=== PATIENT | male | born 1970 | race Caucasian/White ===

== ENCOUNTER 2016-07-31 15:17 | Emergency (ER) | payer SELFPAY ==
[~2016-07-31] VITALS: Ht 180.3 cm; Wt 95.3 kg
[~2016-07-31 15:17] MED LIST: ACET-789 PO; ASPI-808 PO; ASPI-983 PO; DAPA10TA PO; DAPA1TAB5 PO; DICL100G18 TOP; ENOX40DI8 SC; FLUO20CA25 PO; FLUO40CA12 PO; HYDR1CAP2 PO; INSU100V3 SC; JANUMET PO; LISI10TA2 PO; METF500T4 PO; MULT-608 PO; NCT21TD TD; OXYC-471 PO; POLY17PO23 PO; SAXA5TAB PO; SITA1TAB6 PO; SULF1TAB35 PO
--- OUTSIDE RECORDS SUMMARY | 2016-07-31 15:25 | XMS REPORT | Continuity of Care Document ---
Author Author [facility] Organization [facility] Address Unknown Phone Unavailable Care Team Providers Care Roller Turner Name Role Phone Unknown, Unknown PCP Unavailable Source Comments Some departments are not documenting in the electronic medical record. If you do not see the information that you expected, contact Release of Information in the Health Information Management department at [phone] for further assistance in locating additional records.[facility] Active Allergies and Adverse Reactions Allergen Noted Date Severity Reactions Comments Bactrim 10/01/2004 Medium RASH Pcn 05/16/2015 Low UNKNOWN Told as child was an allergy by mother Current Medications Prescription Sig. Disp. Refills Start End Date Status Date metFORMIN (GLUCOPHAGE) Take 1,000 mg by mouth Active 500 mg tablet twice daily. FLUoxetine(+) (PROZAC) 40 Take 40 mg by mouth at Active mg capsule bedtime daily. lisinopril (PRINIVIL; Take 10 mg by mouth Active ZESTRIL) 10 mg tablet daily. aspirin 81 mg chewable Take 1 Tab by mouth 90 Tab 3 05/17/20 Active tablet daily. 15 oxyCODONE-acetaminophen Take 1-2 Tabs by mouth 30 Tab 0 05/17/20 Active (PERCOCET; ENDOCET; every 6 hours as needed 15 ROXICET) 5-325 mg tablet for Pain Earliest Fill Date: 05/17/15 ibuprofen (MOTRIN) 200 mg Take 800 mg by mouth Active tablet daily as needed for Pain. Active Problems Problem Noted Date Left-sided weakness 10/02/2015 Essential hypertension 05/17/2015 Type 2 diabetes mellitus (HCC) 05/17/2015 Depression 05/17/2015 Functional neurological symptom disorder with weakness or paralysis 2014 Overview: Factious disorder vs malingering Resolved Problems Problem Noted Date Resolved Date Tissue plasminogen activator (t-PA) administered at other facility within 05/17/2015 24 hours prior to current admission Immunizations Name Dates Previously Given Next Due Flu Vaccine 05/17/2015 Quadrivalent=>3 Yo (Preservative Free) Social History Tobacco Use Types Packs/Day Years Used Date Former Smoker Cigarettes 1 33 04/21/1982 - 08/04/2015 Smokeless Tobacco: Chew Current User Alcohol Use Drinks/Week oz/Week Comments No 0 Standard 0.0 drinks or equivalent Last Filed Vital Signs Vital Sign Reading Time Taken Blood Pressure 124/72 10/05/2015 2:10 PM CDT Pulse 64 10/05/2015 2:10 PM CDT Temperature 36.4 C (97.5 F) 10/05/2015 2:10 PM CDT Respiratory Rate - - Height 1.803 m (5' 11") 10/02/2015 6:00 AM CDT Weight 91.899 kg (202 lb 9.6 oz) 10/02/2015 6:00 AM CDT Body Mass Index 28.27 10/02/2015 6:00 AM CDT Oxygen Saturation 96% 10/05/2015 2:10 PM CDT Plan of Care Health Maintenance Due Date Last Done Comments Physical (Comprehensive) 1976 Exam Pertussis Vaccine 1980 Tetanus Vaccine 1986 Influenza Vaccine 03/22/2016 05/17/2015 Results from Last 3 Months Not on file
[2016-07-31] MEDS ORDERED: ASPIRIN 81 MG CHEW (CHILDREN'S ASA) PO ONE (15:45)
--- NOTE | 2016-07-31 15:47 | ED Chest Pain ---
General Chief Complaint: Chest Pain Stated Complaint: CP,BLURRED VISION Source: patient Exam Limitations: no limitations History of Present Illness Time seen by provider: 15:36 Initial Comments Here with onset of left hand pain and left eye pain earlier today and that was associated with left sided chest pain. Nonradiating and mild described as a pressure. Has been on and off for all day. States pain last about an hour and then goes away. Most recent chest pain lasted an hour and a half. Denies nausea, vomiting, weakness or diaphoresis. Timing/Duration: intermittent, 12 hours Severity/Quality: moderate, pressure Location: central Radiation: no radiation Activities at Onset: none Prior CP/Workup: cardiac cath ASA po SET UP MACHINIST: No NTG SL SET UP MACHINIST: No Associated Symptoms: No abdominal pain, No back pain, No nausea/vomiting, No shortness of breath, No weakness Allergies and Home Medications Allergies Coded Allergies: Penicillins (Verified Allergy, Mild, 05/17/15) Home Medications Aspirin 325 Mg Tablet 325 MG PO DAILY (Reported) Dapagliflozin/Metformin HCl 1 Each Tab.bp.24h 1 TAB PO DAILY (Reported) Fluoxetine HCl 40 Mg Capsule 40 MG PO DAILY (Reported) Lisinopril 10 Mg Tablet 10 MG PO DAILY (Reported) Oxycodone HCl/Acetaminophen 1 Each Tablet 1 TAB PO Q4H PRN PRN PAIN (Reported) Sitagliptin Phos/Metformin HCl 1 Each Tablet 1 TAB PO HS (Reported) Review of Systems Constitutional: see HPINo chills, No fever EENTM: No Symptoms Reported Respiratory: No Symptoms Reported Cardiovascular: No Symptoms Reported Gastrointestinal: No Symptoms Reported Genitourinary: No Symptoms Reported Musculoskeletal: see HPI muscle pain Skin: no symptoms reported Psychiatric/Neurological: No Symptoms Reported Endocrine: No Symptoms Reported All Other Systems Reviewed Negative Unless Noted: Yes Past Wwiqdac-Mqixoj-Lwtqof Hx Patient Social History Alcohol Use: Denies Use Recreational Drug Use: No Smoking Status: Never a Smoker Former Smoker/When Quit: May 17, 2015 Recent Foreign Travel: No Contact w/Someone Who Travel: No Immunizations Up To Date Tetanus Booster (TDap): Unknown PED Vaccines UTD: No Date of Pneumonia Vaccine: Jul 22, 2012 Date of Influenza Vaccine: May 17, 2015 Seasonal Allergies Seasonal Allergies: No Surgeries HX Surgeries: Yes (Partial pancreatectomy and spleenectomy, right shoulder) Surgeries: Appendectomy, Pancreatic Respiratory Hx Respiratory Disorders: Yes Respiratory Disorders: Sleep Apnea, COPD Cardiovascular Hx Cardiac Disorders: Yes (Endocarditis in 2006) Cardiac Disorders: Endocarditis Neurological Hx Neurological Disorders: Yes (STROKE X3) Neurological Disorders: Stroke Reproductive System Hx Reproductive Disorders: No Sexually Transmitted Disease: No HIV/AIDS: No Genitourinary Hx Genitourinary Disorders: No Gastrointestinal Hx Gastrointestinal Disorders: No Gastrointestinal Disorders: Pancreatitis, Gall Bladder Disease Musculoskeletal Hx Musculoskeletal Disorders: Yes Musculoskeletal Disorders: Arthritis, Back Injury Endocrine Hx Endocrine Disorders: Yes Endocrine Disorders: Diabetes, Non-Insulin dep HEENT HX ENT Disorders: No Loss of Vision: Denies Hearing Impairment: Denies Cancer Hx Cancer: No Psychosocial Hx Psychiatric Problems: Yes Behavioral Health Disorders: Anxiety, Depression Integumentary HX Skin/Integumentary Disorder: No Blood Transfusions Hx Blood Disorders: No Adverse Reaction to a Blood Tr: No Reviewed Nursing Assessment Reviewed/Agree w Nursing PMH: Yes Family Medical History Significant Family History: No Pertinent Family Hx, Diabetes, Stroke Family Medial History: Patient reports no known family medical history. Physical Exam Vital Signs Vital Sign - Last 12Hours 07/31/16 15:20 Temp 97.9 Pulse 78 Resp 16 B/P 118/84 Capillary Refill : General Appearance: No Apparent Distress WD/WN Neck: Non Tender Supple Respiratory: Lungs Clear Normal Breath Sounds Cardiovascular: Regular Rate, Rhythm No Murmur Gastrointestinal: Non Tender Rectal: Normal Exam Extremity: Non Tender No Calf Tenderness Neurologic/Psychiatric: Alert Oriented x3 Skin: Normal Color Warm/Dry Progress/Results/Core Measures Results/Orders Lab Results Laboratory Tests Test 07/31/16 15:40 Range/Units Activated Partial Thromboplast Time 26 24-35 SEC Alanine Aminotransferase (ALT/SGPT) 25 0-55 U/L Albumin 4.4 3.2-4.5 G/DL Alkaline Phosphatase 60 40-136 U/L Amylase Level 27 25-125 U/L Anion Gap 7 5-14 MMOL/L Aspartate Amino Transf (AST/SGOT) 20 5-34 U/L BUN/Creatinine Ratio 8 Basophils # (Auto) 0.1 0.0-0.1 10^3/uL Basophils (%) (Auto) 1 0-10 % Blood Urea Nitrogen 8 7-18 MG/DL Calcium Level 8.8 8.5-10.1 MG/DL Carbon Dioxide Level 26 21-32 MMOL/L Chloride Level 108 H 98-107 MMOL/L Creatinine 1.04 0.60-1.30 MG/DL D-Dimer 0.27 0.00-0.49 UG/ML Eosinophils # (Auto) 0.2 0.0-0.3 10^3/uL Eosinophils (%) (Auto) 2 0-10 % Estimat Glomerular Filtration Rate > 60 Glucose Level 117 H 70-105 MG/DL Hematocrit 38 L 40-54 % Hemoglobin 13.0 L 13.3-17.7 G/DL INR Comment 1.1 0.8-1.4 Lipase 12 8-78 U/L Lymphocytes # (Auto) 3.6 1.0-4.0 X 10^3 Lymphocytes (%) (Auto) 40 12-44 % Magnesium Level 1.9 1.8-2.4 MG/DL Mean Corpuscular Hemoglobin 30 25-34 PG Mean Corpuscular Hemoglobin Concent 34 32-36 G/DL Mean Corpuscular Volume 87 80-99 FL Mean Platelet Volume 9.5 7.4-10.4 FL Monocytes # (Auto) 1.1 H 0.0-1.0 X 10^3 Monocytes (%) (Auto) 12 0-12 % Myoglobin 59.9 10.0-92.0 NG/ML Neutrophils # (Auto) 4.2 1.8-7.8 X 10^3 Neutrophils (%) (Auto) 46 42-75 % Platelet Count 412 H 130-400 10^3/uL Potassium Level 3.7 3.6-5.0 MMOL/L Prothrombin Time 13.8 12.2-14.7 SEC Red Blood Count 4.33 L 4.35-5.85 10^6/uL Red Cell Distribution Width 14.3 10.0-14.5 % Sodium Level 141 135-145 MMOL/L Total Bilirubin 0.4 0.1-1.0 MG/DL Total Protein 7.2 6.4-8.2 G/DL Troponin I < 0.30 <0.30 NG/ML White Blood Count 9.1 4.3-11.0 10^3/uL My Orders Orders-AKANKSHA FREEMAN MD Cbc With Automated Diff (07/31/16 15:31) Magnesium (07/31/16 15:31) Chest 1 View, Ap/Pa Only (07/31/16 15:31) Ekg Tracing (07/31/16 15:31) Cardiac Profile 1 (07/31/16 15:31) Comprehensive Metabolic Panel (07/31/16 15:31) Myoglobin Serum (07/31/16 15:31) Protime With Inr (07/31/16 15:31) Partial Thromboplastin Time (07/31/16 15:31) O2 (07/31/16 15:31) Monitor-Rhythm Ecg Trace Only (07/31/16 15:31) Lipid Panel (08/01/16 06:00) Aspirin Chewable Tablet (Baby Aspirin Ch (07/31/16 15:45) Saline Lock/Iv-Start (07/31/16 15:31) Lipase (07/31/16 15:31) Amylase (07/31/16 15:31) Fibrin Degradation Products (07/31/16 15:31) Medications Given in ED Current Medications Medications Dose Ordered Sig/Deven Route Start Time Stop Time Status Last Admin Dose Admin Aspirin 324 mg ONCE ONCE PO 07/31/16 15:45 07/31/16 15:46 DC 07/31/16 15:49 324 MG Vital Signs/I&O Vital Sign - Last 12Hours 07/31/16 15:20 Temp 97.9 Pulse 78 Resp 16 B/P 118/84 Progress Note : Progress Note Seen and evaluated. IV, labs, EKG and chest x-ray. ASA 324 mg by mouth. No significant chest pain currently so no nitroglycerin. Monitor patient. 1645: Workup is negative for cardiac event. He had heart catheter 2 years ago that showed angiographically normal and large coronary arteries. Low risk for cardiac event. ECG Initial ECG Impression Date: Jul 31, 2016 Initial ECG Impression Time: 15:29 Initial ECG Rate: 76 Initial ECG Rhythm: Normal Sinus Initial ECG Intervals: Normal Initial ECG Impression: Normal Initial ECG Comparisson: Unchanged Comment Sinus rhythm with normal axis. No evidence of ST elevation RI. Similar to previous of 08/18/15. Interpreted by me. Diagnostic Imaging Diagonstic Imaging: Xray Plain Films/CT/US/NM/MRI: chest Comments NAME: RUTH ANN MATHEW [facility] REC#: [id number] PT STATUS: REG ER : 1970 PHYSICIAN: AKANKSHA FREEMAN MD ADMIT DATE: 07/31/16/ER Signed Date of Exam: 07/31/16 CHEST 1 VIEW, AP/PA ONLY INDICATION: Left-sided weakness, facial droop. FINDINGS: The lungs are clear. The heart and vessels are normal. No effusion or pneumothorax. There has been no change from study of 07/21/2015. IMPRESSION: Unremarkable frontal chest. Dictated by: Dictated on workstation # [id number] Dict: 07/31/16 1606 Trans: 07/31/16 1640 [id number] Interpreted by: ELIZA NEGRON Electronically signed by:ELIZA NEGRON 07/31/16 1643 Reviewed: Reviewed by Me Departure Impression Impression: Primary Impression: Chest pain Qualified Code: R07.9 - Chest pain, unspecified Disposition: HOME, SELF-CARE Condition: Improved Departure-Patient Inst. Decision time for Depature: 16:52 Referrals: LONNIE BHATIA MD NO,LOCAL PHYSICIAN (PCP) Primary Care Physician Patient Instructions: Chest Pain (DC) Add. Discharge Instructions: All discharge instructions reviewed with patient and/or family. Voiced understanding. Take baby aspirin daily. Follow-up with your DrAlexa this week for recheck and further evaluation. Thick appointment with Dr. Bhatia for recheck and further evaluation. Call his office in the morning for appointment. Return for worsening, fever, vomiting, weakness, breathing problems or other concerns as needed. Work/School Note: Work Release Form Date Seen in the Emergency Department: Jul 31, 2016 Return to Work: Aug 03, 2016 Restrictions: No Restrictions AKANKSHA FREEMAN MD Jul 31, 2016 15:47
[2016-07-31 15:59] LABS: BASOPHILS # (AUTO) 0.1 10^3/uL (0.0-0.1); BASOPHILS % (AUTO) 1 % (0-10); EOSINOPHILS # (AUTO) 0.2 10^3/uL (0.0-0.3); EOSINOPHILS % (AUTO) 2 % (0-10); LYMPHOCYTES # (AUTO) 3.6 X 10^3 (1.0-4.0); LYMPHOCYTES % (AUTO) 40 % (12-44); MEAN CORPUSCULAR HEMOGLOBIN 30 PG (25-34); MEAN CORPUSCULAR HGB CONC 34 G/DL (32-36); MEAN CORPUSCULAR VOLUME 87 FL (80-99); MEAN PLATELET VOLUME 9.5 FL (7.4-10.4); MONOCYTES # (AUTO) 1.1 X 10^3 (0.0-1.0); MONOCYTES % (AUTO) 12 % (0-12); NEUTROPHILS # (AUTO) 4.2 X 10^3 (1.8-7.8); NEUTROPHILS % (AUTO) 46 % (42-75); PLATELET COUNT 412 10^3/uL (130-400); RED BLOOD COUNT 4.33 10^6/uL (4.35-5.85); RED CELL DISTRIBUTION WIDTH 14.3 % (10.0-14.5); WHITE BLOOD COUNT 9.1 10^3/uL (4.3-11.0)
[2016-07-31 16:10] LABS: INR 1.1 (0.8-1.4); PROTHROMBIN TIME PATIENT 13.8 SEC (12.2-14.7)
[2016-07-31 16:12] LABS: ALANINE AMINOTRANSFERASE 25 U/L (0-55); ALBUMIN 4.4 G/DL (3.2-4.5); AMYLASE 27 U/L (25-125); ANION GAP 7 MMOL/L (5-14); ASPARTATE AMINO TRANSFERASE 20 U/L (5-34); BILIRUBIN,TOTAL 0.4 MG/DL (0.1-1.0); BLOOD UREA NITROGEN 8 MG/DL (7-18); BUN/CREATININE RATIO 8; CALCIUM 8.8 MG/DL (8.5-10.1); CARBON DIOXIDE 26 MMOL/L (21-32); CHLORIDE 108 MMOL/L (98-107); CREATININE SERUM 1.04 MG/DL (0.60-1.30); GFR ESTIMATED > 60; GLUCOSE 117 MG/DL (70-105); LIPASE 12 U/L (8-78); MAGNESIUM 1.9 MG/DL (1.8-2.4); POTASSIUM 3.7 MMOL/L (3.6-5.0); SODIUM 141 MMOL/L (135-145); TOTAL PROTEIN 7.2 G/DL (6.4-8.2)
[2016-07-31 16:18] LABS: MYOGLOBIN SERUM 59.9 NG/ML (10.0-92.0)
--- NOTE | 2016-07-31 16:18 | Diagnostic Imaging Report ---
INDICATION: Left-sided weakness, facial droop. FINDINGS: The lungs are clear. The heart and vessels are normal. No effusion or pneumothorax. There has been no change from study of 07/21/2015. IMPRESSION: Unremarkable frontal chest. Dictated by: Dictated on workstation # [id number]
[2016-07-31 17:13] VITALS: BP 116/40
== END 2016-07-31 17:13 | disposition home or self-care (01) ==
LOC: EDUNIT# 15:17 → ER 15:18
DX: R07.9 Chest pain, unspecified (principal); M79.602 Pain in left arm; I10 Essential (primary) hypertension; Z79.82 Long term (current) use of aspirin; Z79.899 Other long term (current) drug therapy
CPT/HCPCS: 36415; 71010; 80053; 82150; 83690; 83735; 83874; 84484; 85025; 85379; 85610; 85730; 93005; 93041

== ENCOUNTER → 2017-05-11 | Outpatient (CLI) | payer SELFPAY ==
[2017-05-11 08:35] LABS: RED BLOOD COUNT 4.48 10^6/uL (4.35-5.85); RED CELL DISTRIBUTION WIDTH 14.4 % (10.0-14.5); WHITE BLOOD COUNT 6.7 10^3/uL (4.3-11.0)
[2017-05-11 09:03] LABS: ALANINE AMINOTRANSFERASE 26 U/L (0-55); ALBUMIN 4.2 GM/DL (3.2-4.5); ANION GAP 7 MMOL/L (5-14); ASPARTATE AMINO TRANSFERASE 19 U/L (5-34); BILIRUBIN,TOTAL 0.4 MG/DL (0.1-1.0); BLOOD UREA NITROGEN 17 MG/DL (7-18); BUN/CREATININE RATIO 19; CALCIUM 9.1 MG/DL (8.5-10.1); CARBON DIOXIDE 26 MMOL/L (21-32); CHLORIDE 110 MMOL/L (98-107); CHOLESTEROL 131 MG/DL (< 200); CREATININE SERUM 0.91 MG/DL (0.60-1.30); DIRECT LDL 86 MG/DL (1-129); GFR ESTIMATED > 60; GLUCOSE 96 MG/DL (70-105); POTASSIUM 4.3 MMOL/L (3.6-5.0); SODIUM 143 MMOL/L (135-145); TOTAL PROTEIN 7.5 GM/DL (6.4-8.2); TRIGLYCERIDES 55 MG/DL (<150); VLDL CHOLESTEROL 11 MG/DL (5-40)
== END ==
LOC: LAB 08:06
PROVIDERS: ATTEND Nurse Practitioner
DX: I10 Essential (primary) hypertension (principal); E11.9 Type 2 diabetes mellitus without complications; E83.42 Hypomagnesemia
CPT/HCPCS: 36415; 80053; 80061; 83036; 83735; 85027

== ENCOUNTER → 2020-02-29 | Outpatient (CLI) | payer SELFPAY ==
[~2020-02-29] MED LIST changes: +METF-397 PO; -METF500T4 PO; -NCT21TD TD; +NICO-588 TD; -POLY17PO23 PO; +POLY17PO31 PO
== END ==
LOC: CARD 09:13
PROVIDERS: ATTEND Internal Medicine Cardiovascular Disease
DX: I11.9 Hypertensive heart disease without heart failure (principal)
CPT/HCPCS: 93306

== ENCOUNTER 2020-09-27 05:43 | Outpatient (RCR) | payer SELFPAY ==
[~2020-09-27] VITALS: Ht 180.3 cm; Wt 104.5 kg
[~2020-09-27 05:43] MED LIST changes: +ASPI-1238 PO; -ASPI-983 PO; -LISI10TA2 PO; +LISI10TA25 PO; -NICO-588 TD; +NICO-685 TD; -OXYC-471 PO; +OXYC1TAB11 PO; -POLY17PO31 PO; +POLY17PO54 PO
[2020-09-27] MEDS ORDERED: TOPI25TA10 PO (15:45)
[2020-09-27] MEDS ORDERED: GLIP10TA24 PO (15:45)
[2020-09-27] MEDS ORDERED: DOXY100T2 PO (15:45)
[2020-09-27] MEDS ORDERED: MTP25TSR PO (15:45)
[2020-09-27] MEDS ORDERED: INSU100V16 SQ (15:45)
[2020-09-27] MEDS ORDERED: LOSA25TA41 PO (15:45)
[2020-09-27] MEDS ORDERED: ATOR20TA66 PO (15:46)
[2020-09-27] MEDS ORDERED: DAPA10TA PO (15:46)
[2020-10-04] MEDS ORDERED: CEPH500T PO (09:13)
[2020-10-04] MEDS ORDERED: TRM50T PO (09:13)
== END 2020-12-26 | disposition home or self-care (01) ==
LOC: PREOP 05:43
PROVIDERS: ATTEND Urology
DX: Z01.818 Encounter for other preprocedural examination (principal)

== ENCOUNTER 2020-10-04 06:49 | Day surgery (SDC) | payer OTHER ==
[2020-10-04] VITALS (11 sets, daily range): BP systolic 117–138; BP diastolic 75–93
[~2020-10-04] VITALS: Ht 180 cm; Wt 104.5 kg
[~2020-10-04 06:49] MED LIST changes: +ATOR20TA66 PO; +DOXY100T2 PO; +GLIP10TA24 PO; +INSU100V16 SQ; +LOSA25TA41 PO; +MTP25TSR PO; +TOPI25TA10 PO
--- NOTE | 2020-10-04 07:04 | Progress Note-Pre Operative ---
Pre-Operative Progress Note H&P Reviewed The H&P was reviewed, patient examined and no changes noted. Date Seen by Provider: Oct 04, 2020 Time Seen by Provider: 07:03 Date H&P Reviewed: Oct 04, 2020 Time H&P Reviewed: 07:03 Pre-Operative Diagnosis: LT HYDROCELE YOGESH CARCAMO MD Oct 04, 2020 07:03
[2020-10-04] MEDS ORDERED: ceFAZolin INJECTION 1,000 MG in WATER (STERILE) FOR INJECTION 10 ML IV ONE (07:30)
[2020-10-04] MEDS: LACTATED RINGERS 1,000 ML IV PRN ×2 (07:40→08:38)
[2020-10-04] MEDS ORDERED: proPOfol 200 MG/20 ML (DIPRIVAN) VIAL IV ONE (07:52)
[2020-10-04] MEDS ORDERED: LIDOCAINE PF 2% 5 ML (XYLOCAINE) VIAL ONE (07:52)
[2020-10-04] MEDS ORDERED: ROCURONIUM 10 MG/ML 5 ML SYRINGE IV ONE (07:52)
[2020-10-04] MEDS ORDERED: ONDANSETRON 4 MG/2 ML (SDV) Z0FRAN ONE (07:52)
[2020-10-04] MEDS ORDERED: MIDAZOLAM 2 MG/2 ML (VERSED) VIAL ONE (07:53)
[2020-10-04] MEDS ORDERED: fentaNYL INJ 100 MCG/2 ML AMP ONE (07:53)
[2020-10-04] MEDS ORDERED: NEOSTIGMINE 3 MG/3 ML VIAL ONE (08:39)
[2020-10-04] MEDS ORDERED: GLYCOPYRROLATE 0.2 MG/ML (ROBINUL) 2 ML VIAL ONE (08:39)
--- NOTE | 2020-10-04 08:51 | Progress Note-Post Operative ---
Post-Operative Progess Note Surgeon (s)/Patient Financial Services Coordinator (s) Surgeon YOGESH CARCAMO MD Patient Financial Services Coordinator: NONE Pre-Operative Diagnosis LT HYDROCELE Post-Operative Diagnosis SAME Procedure & Operative Findings Date of Procedure 10/04/20 Procedure Performed/Findings LT HYDROCELECTOMY Anesthesia Type GENERAL Estimated Blood Loss Estimated blood loss (mL): NEGLIGIBLE Specimens/Packing Specimens Removed NONE Packin/4" JONAS DRAIN YOGESH CARCAMO MD Oct 04, 2020 08:51
--- NOTE | 2020-10-04 08:54 | Discharge Inst-Urology ---
Discharge Inst-Urology Reconcile Patient Problems Problems Reviewed?: Yes Final Diagnosis LT HYDROCELE Patient Instructions/Follow Up Plan/Assessment/Instructions Please make appointment to been seen in office in 2 weeks. Rest till then Come to office tomorrow 9am to DC drain, then start showers no bath Scrotal support for 2 weeks Keep bowels soft and moving Ice to scrotum in RR and at home for 6 hours and then PRN Increase oral fluids for 48 hours and then as needed. Diet as tolerated. If questions or concerns contact your physician or seek help at emergency department. YOGESH CARCAMO MD Oct 04, 2020 08:54
[2020-10-04] MEDS ORDERED: TRM50T PO (09:13)
[2020-10-04] MEDS ORDERED: CEPH500T PO (09:13)
[2020-10-04] MEDS ORDERED: morphine INJ 10 MG/ML 1ML (SYR OR VIAL) IVP ONE (09:15)
[2020-10-04] MEDS ORDERED: ONDANSETRON 4 MG/2 ML (SDV) Z0FRAN IVP PRN (09:15)
--- NOTE | 2020-10-04 11:32 | OPERATIVE REPORT ---
DATE OF SERVICE: 10/04/2020 PREOPERATIVE DIAGNOSIS: Left hydrocele. POSTOPERATIVE DIAGNOSIS: Left hydrocele. OPERATION PERFORMED: Left hydrocelectomy. SURGEON: Grover Carcamo MD ANESTHESIA: General. COMPLICATIONS: None. DESCRIPTION OF PROCEDURE: Under satisfactory general anesthesia, the patient in supine position, abdomen, genitalia and thigh were prepped and draped in the usual sterile fashion. Incision was made in the median raphe, carried through the left scrotal compartment. Large amount of fluid was suctioned. Bleeders were cauterized as the dissection was proceeding. The testicle was intact and the epididymis as well and healthy. The hydrocele sac was everted behind the spermatic cord and with four interrupted 4-0 chromic catgut suture. Hemostasis was complete. The testicle was replaced into the left scrotal compartment that was drained with quarter of an inch [place] drain, brought through a separate stab wound at the bottom of the scrotum secured in position with a 3-0 chromic catgut suture. Closure was performed in layer, the dartos with running 3-0 chromic catgut and the skin with interrupted 4-0 Vicryl. Telfa, fluffs and scrotal support was applied. Estimated blood loss was negligible. Needle, sponge, instrument count correct x2. The patient tolerated the procedure and anesthesia well and was sent to recovery room in stable condition. Instructions were given to the . Job ID: [id number] DocumentID: [id number] Dictated Date: 10/04/2020 08:57:51 [place] Driver Date: 10/04/2020 11:32:15 Dictated By: GROVER CARCAMO MD [facility]
== END 2020-10-04 11:20 | disposition home or self-care (01) ==
LOC: SDC 06:49
PROVIDERS: ATTEND Urology
DX: N43.3 Hydrocele, unspecified (principal); I10 Essential (primary) hypertension; I25.10 Atherosclerotic heart disease of native coronary artery without angina pectoris; J45.909 Unspecified asthma, uncomplicated; G47.33 Obstructive sleep apnea (adult) (pediatric); G43.909 Migraine, unspecified, not intractable, without status migrainosus; E11.9 Type 2 diabetes mellitus without complications; Z79.899 Other long term (current) drug therapy; Z88.2 Allergy status to sulfonamides; Z88.1 Allergy status to other antibiotic agents; Z80.9 Family history of malignant neoplasm, unspecified
CPT/HCPCS: 82962; 87081